=== PATIENT | female | born 1940 | race Caucasian/White ===

== ENCOUNTER → 2016-08-09 | Outpatient (CLI) | payer MEDICARE, BC ==
[~2016-08-09] MED LIST: ACIDOPHILUS1 CAP PO; ALLOPURINOL300 MG PO; ASPIRIN; ASPIRIN81 M1 PO; BIOTIN800 MCG PO; CALCIUM 500 + D1 TAB PO; CALCIUM500 MG PO; CALTRATE PLUS T1 TAB; CHROMIUM PICOLINATE; DIOVAN HCT 160/1 TAB; FISH OIL 1,0001 CAP PO; FUROSEMIDE40 MG PO; GARLIC OIL1000 MG PO; GARLIQUE; KCL; KLOR-CON PO; L LYSINE; LASIX; LIPITOR; LISINOPRIL20 MG PO; METOPROLOL TARTRATE PO; MULTI-VITAMIN1 TAB; MULTIVITAMIN1 UDCAP PO; NIACIN; OMEGA 3; OSTEO BIFLEX; OSTEO BIFLEX TRIPLE PO; POLYGESIC 5/5001 CAP PO; PRILOSEC20 M1 PO; PROBIOTIC; TOPROL XL; VIT B6; VITAMIN B100 COMPLEX PO; VITAMIN C; VITAMIN C500 M3 PO; VITAMIN D31000 UNIT PO; ZETIA; ZYLOPRIM PO; [UNRECOGNIZED DRUG - OTHER]
[2016-08-09 11:19] LABS: HEMATOCRIT 38.8 % (35.0-45.0); HEMOGLOBIN 12.7 gm/dL (12.0-16.0); MEAN CELL VOLUME 103.5 FL (83-96); MEAN CORPUSCULAR HEMOGLOBIN 33.9 PG (28-34); MEAN CORPUSCULAR HGB CONC 32.7 g/dL (30-36); RED BLOOD COUNT 3.75 X10e (3.90-5.30); WHITE BLOOD COUNT 6.6 X10e3 (4.0-10.5)
[2016-08-09 11:32] LABS: URINE APPEARANCE CLEAR; URINE BILIRUBIN NEG (NEG); URINE BLOOD TRACE-INTACT (NEG); URINE COLOR YELLOW; URINE GLUCOSE NEG (NORM); URINE KETONE NEG (NEG); URINE LEUKOCYTE ESTERASE 3+ (NEG); URINE NITRATE NEG (NEG); URINE PROTEIN NEG (NEG); URINE UROBILINOGEN 0.2 MG/DL (NORM)
[2016-08-09 11:44] LABS: MICRO INDICATED? YES
[2016-08-09 11:46] LABS: URINE SOURCE CLEAN CATCH
[2016-08-09 11:48] LABS: URINE BACTERIA 1+ (NEG); URINE RBC 0-2 /[HPF] (0-2); URINE SQUAMOUS EPITHELIAL CELL FEW /[HPF]
[2016-08-09 12:36] LABS: BUN/CREATININE RATIO 36.15; CREATININE SERUM 1.3 mg/dL (0.6-1.4); GLOM FILT RATE Estimated 39.5 mL/min (>60); POTASSIUM 4.3 mmol/L (3.5-5.1)
[2016-08-09 12:37] LABS: CALCIUM SERUM 9.6 mg/dL (8.4-10.2)
[2016-08-11 18:40] LABS: CALCIUM (PTHINTACT) 9.4 mg/dL (8.6-10.4)
== END | disposition home or self-care (01) ==
LOC: SLAB 10:57
PROVIDERS: Internal Medicine Nephrology
DX: I12.9 Hypertensive chronic kidney disease with stage 1 through stage 4 chronic kidney disease, or unspecified chronic kidney disease (principal); N18.3 Chronic kidney disease, stage 3 (moderate); N25.81 Secondary hyperparathyroidism of renal origin
CPT/HCPCS: 36415; 80048; 81003; 82306; 82310; 82728; 83540; 83550; 83970; 84100; 85027

== ENCOUNTER → 2016-08-18 | Outpatient (CLI) | payer MEDICARE, BC | END | disposition home or self-care (01) | LOC: CECH 12:20 | DX: R06.02 Shortness of breath (principal); I51.7 Cardiomegaly; I34.1 Nonrheumatic mitral (valve) prolapse; I34.0 Nonrheumatic mitral (valve) insufficiency; I36.1 Nonrheumatic tricuspid (valve) insufficiency | CPT/HCPCS: 93306 ==